=== PATIENT | male | born 1980 | race Two or more races ===

== ENCOUNTER 2021-08-01 20:07 | Emergency (ER) | payer OTHER ==
[~2021-08-01] VITALS: Ht 177.8 cm; Wt 89.8 kg
[2021-08-02] MEDS ORDERED: PROAIR HFA8.5 GM IH (03:15)
[2021-08-02] MEDS ORDERED: ALBUTEROL2.5 MG/3 M IH (03:15)
[2021-08-02] MEDS ORDERED: FLOVENT HFA12 G1 IH (03:15)
== END 2021-08-02 03:38 ==
LOC: ER 20:07
DX: R06.02 Shortness of breath (principal); Z88.6 Allergy status to analgesic agent; Z88.0 Allergy status to penicillin; Z91.013 Allergy to seafood